=== PATIENT | male | born 1995 | race Caucasian/White ===

== ENCOUNTER 2017-03-23 18:06 | Emergency (ER) | payer SELFPAY ==
[~2017-03-23] VITALS: Ht 188 cm; Wt 88.6 kg
[2017-03-23 18:11] VITALS: TEMP 97.8
[2017-03-23] MEDS ORDERED: NORCO 325 MG-51 TAB PO (20:11)
[2017-03-23 20:51] VITALS: BP 126/78; PULSE 55
== END 2017-03-23 20:58 | disposition home or self-care (01) ==
LOC: COL.ER 18:06
DX: S43.085A Other dislocation of left shoulder joint, initial encounter (principal); X50.0XXA Overexertion from strenuous movement or load, initial encounter; Y92.39 Other specified sports and athletic area as the place of occurrence of the external cause
CPT/HCPCS: J2060; J2270; J3010; J7030